=== PATIENT | female | born 1995 | race Caucasian/White ===

== ENCOUNTER 2018-03-02 14:10 | Emergency (ER) | payer SELFPAY ==
--- NOTE | 2018-03-02 16:04 | EDPHY ---
H & P Stated Complaint: headache, dizzy, vision problems, nausea "dilated pupils" worseningx3 days Time Seen by Provider: 03/02/18 15:44 HPI/ROS: CHIEF COMPLAINT: Dilated pupils, blurred vision, dizziness, headache HISTORY OF PRESENT ILLNESS: Patient is a 22-year-old female who noticed yesterday that her pupil was slightly dilated on the left. Today both pupils are dilated. She is light sensitive and is starting to have headaches and blurred vision. She denies any eyedrops or chemicals that of got in her eye. She has not had any lethargy trauma. No fevers or infections. No history of vision problems. She does have a remote history of migraines but has not had 1 for several years. She has never had ocular symptoms like this before with her migraines. REVIEW OF SYSTEMS: Constitutional: denies: chills, fever, recent illness, recent injury EENTM: denies: blurred vision, double vision, nose congestion Respiratory: denies: cough, shortness of breath Cardiac: denies: chest pain, irregular heart rate, lightheadedness, palpitations Gastrointestinal/Abdominal: denies: abdominal pain, diarrhea, nausea, vomiting, blood streaked stools Genitourinary: denies: dysuria, frequency, hematuria, pain Musculoskeletal: denies: joint pain, muscle pain Skin: denies: lesions, rash, jaundice, bruising Neurological: denies: headache, numbness, paresthesia, tingling, dizziness, weakness Hematologic/Lymphatic: denies: blood clots, easy bleeding, easy bruising Immunologic/allergic: denies: HIV/AIDS, transplant EXAM: GENERAL: Well-appearing, well-nourished and in no acute distress. HEAD: Atraumatic, normocephalic. EYES: Pupils equal round and reactive to light but definitely dilated compared to would be expected, 4 mm. extraocular movements intact, sclera anicteric, conjunctiva are normal. Measured with Tylenol matter at 16 on the left and 14 on the right. Retinal exam completed no visible hemorrhages or detachment or ischemia. ENT: TMs normal, nares patent, oropharynx clear without exudates. Moist mucous membranes. NECK: Normal range of motion, supple without lymphadenopathy or JVD. LUNGS: Breath sounds clear to auscultation bilaterally and equal. No wheezes rales or rhonchi. HEART: Regular rate and rhythm without murmurs, rubs or gallops. ABDOMEN: Soft, nontender, normoactive bowel sounds. No guarding, no rebound. No masses appreciated. BACK: No CVA tenderness, no spinal tenderness, step-offs or deformities EXTREMITIES: Normal range of motion, no pitting or edema. No clubbing or cyanosis. NEUROLOGICAL: Cranial nerves II through XII grossly intact. Normal speech, normal gait. 5/5 strength, normal movement in all extremities, normal sensation PSYCH: Normal mood, normal affect. SKIN: Warm, dry, normal turgor, no visible rashes or lesions. Source: Patient Exam Limitations: No limitations - Personal History LMP (Females 10-55): Unknown Current Tetanus/Diphtheria Vaccine: No Current Tetanus Diphtheria and Acellular Pertussis (TDAP): No - Medical/Surgical History Hx Asthma: No Hx Chronic Respiratory Disease: No Hx Diabetes: No Hx Cardiac Disease: No Hx Renal Disease: No Hx Cirrhosis: No Hx Alcoholism: No Hx HIV/AIDS: No Hx Splenectomy or Spleen Trauma: No Other PMH: denies. migraines - Family History Significant Family History: No pertinent family hx - Social History Smoking Status: Current every day smoker Alcohol Use: Sober Drug Use: None Constitutional: Initial Vital Signs Temperature (C) 36.7 C 03/02/18 14:23 Heart Rate 62 03/02/18 14:23 Respiratory Rate 16 03/02/18 14:23 Blood Pressure 131/90 H 03/02/18 14:23 O2 Sat (%) 98 03/02/18 14:23 O2 Delivery Mode Room Air Allergies/Adverse Reactions: No Known Allergies Allergy (Unverified 03/02/18 14:22) Home Medications: Medication Instructions Recorded NK [No Known Home Meds] 03/02/18 Medical Decision Making - Diagnostics Imaging Results: Imaging Impressions Brain MRI 03/02/18 17:44 Impression: Normal MRI of the brain without and with contrast. Results called and discussed with Dr. Mina Gotti at 03/02/2018 18:44. Imaging: Discussed imaging studies w/ scallop shucker Radiologist ED Course/Re-evaluation: 4:50 p.m. we have called Ophthalmology 3 times with no return call. I again offered the patient medication for migraine headache but she declined stating that it is not that bad. I suspect that this is primarily a migraine. We discussed possibility of intracranial abnormality causing the pupillary dilatation which would not make sense considering her normal mental status. She is laughing and joking. 5:30 p.m. I spoke with Dr. Praveen Valdez who thinks that this is likely migraine versus neurologic rather than ophthalmological. He is comfortable with the exam done thus far. He does recommend brain imaging. I spoke with Dr. Grey who agrees with plan and wants to confirm that she is not taking allergy medication are Allergy drops 6:40 p.m. the patient's MRI results are reassuring. She denies any medications or allergy medications or drops. Have paged Ophthalmology again. 7:00 p.m. I spoke with Dr. Grey again who agrees with discharge and follow-up on Sunday or Sunday in his office. Because of her pupillary dilation is unclear at this time. She declines prescriptions. Differential Diagnosis: Partial list of the Differential diagnosis considered include but were not limited to; medication reaction, eye contamination, migraine and although unlikely based on the history and physical exam, I also considered conjunctivitis, trauma, glaucoma, TIA. I discussed these differential diagnoses and the plan with the patient as well as the usual and expected course. The patient understands that the diagnosis is provisional and that in medicine we are not always correct and that further workup is often warranted. Usual and customary warnings were given. All of the patient's questions were answered. The patient was instructed to return to the emergency department should the symptoms at all worsen or return, otherwise to followup with the physician as we discussed. - Data Points Medications Given: Discontinued Medications Dexamethasone (Decadron Injection) 10 mg IVP EDNOW ONE Stop: 03/02/18 17:04 Last Admin: 03/02/18 17:31 Dose: 10 mg Diphenhydramine HCl (Benadryl Injection) 25 mg IVP EDNOW ONE Stop: 03/02/18 17:39 Last Admin: 03/02/18 17:39 Dose: 25 mg Sodium Chloride (Ns) 1,000 mls @ 0 mls/hr IV ONCE ONE; Wide Open PRN Reason: Protocol Stop: 03/02/18 17:04 Last Admin: 03/02/18 17:39 Dose: 1,000 mls Ketorolac Tromethamine (Toradol) 15 mg IVP EDNOW ONE Stop: 03/02/18 17:04 Last Admin: 03/02/18 17:29 Dose: 15 mg Metoclopramide HCl (Reglan Injection) 10 mg IVP EDNOW ONE Stop: 03/02/18 17:04 Last Admin: 03/02/18 17:41 Dose: 10 mg Departure - Departure Disposition: Home, Routine, Self-Care Clinical Impression: Blurry vision, bilateral, Pupillary dilation Condition: Fair Instructions: Blurred Vision (ED) Referrals: NONE *PRIMARY CARE P,. [Primary Care Provider] - As per Instructions Julius Grey MD [Medical Doctor] - 2-3 days, if not improved Stand Alone Forms: Work Excuse
[2018-03-02] MEDS ORDERED: NS 1,000 ML IV ONE (17:03)
[2018-03-02] MEDS ORDERED: KETOROLAC 30 MG/1 ML SDV IVP ONE (17:03)
[2018-03-02] MEDS ORDERED: METOCLOPRAMIDE 10 MG/2 ML VIAL IVP ONE (17:03)
[2018-03-02] MEDS ORDERED: DEXAMETHASONE 10 MG/ML VIAL IVP ONE (17:03)
[2018-03-02] MEDS ORDERED: GADOBUTROL 10 ML VIAL IVP ONE (18:00)
[2018-03-02 19:17] VITALS: BP 108/76
== END 2018-03-02 19:36 | disposition home or self-care (01) ==
DX: H53.8 Other visual disturbances (principal); H57.04 Mydriasis; F17.200 Nicotine dependence, unspecified, uncomplicated; E86.9 Volume depletion, unspecified
CPT/HCPCS: 96374; A9585; J1100; J1200; J1885; J2765